=== PATIENT | male | born 1965 | race Caucasian/White ===

== ENCOUNTER → 2017-11-18 | Outpatient (CLI) | payer OTHER ==
--- NOTE | 2017-11-18 18:03 | Diagnostic Imaging Report ---
PROCEDURE:TESTICULAR ULTRASOUND COMPARISON:06/28/2016 INDICATIONS:SPERMATOCELE OF EPIDIDYMIS FINDINGS: Multiple sagittal and axial images were obtained of the scrotum. Doppler examination was performed bilaterally. The right testicle measures 3.0 x 2.4 x 3.0 cm. It is of normal echogenicity without focal masses. The vascular supply is within normal limits, without evidence of testicular torsion. The right epididymis measures approximately 1.0 x 0.8 x 0.8 cm. There is a 0.5 x 0.4 x 0.6 cm right epididymal head cyst or spermatocele. No hydrocele or varicocele is identified. The left testicle measures 3.5 x 2.2 x 3.3 cm. It is within normal echogenicity without focal masses. The vascular supply is within normal limits, without evidence for torsion. The left epididymis measures approximately 1.8 x 1.8 x 1.9 cm. There is a 2.0 x 1.4 x 2.0 cm left epididymal cyst or spermatocele. No hydrocele. A small left varicocele appears grossly unchanged. There is no sonographic evidence for right or left inguinal hernia. Overlying scrotal tissue is within normal limits. CONCLUSION: 1. No evidence of testicular torsion, mass, or inflammatory disease. 2. Left-sided varicocele, unchanged. 3. Bilateral epididymal head spermatoceles or cysts, measuring up to 2.0 cm on the left, unchanged Dictated by: Brian Robles M.D. on 11/18/2017 at 18:04 Electronically approved by: Brian Robles M.D. on 11/18/2017 at 18:04
--- NOTE | 2017-11-18 18:04 | Diagnostic Imaging Report ---
PROCEDURE:TESTICULAR DOPPLER ULTRASOUND Please refer to separate dictation for testicular ultrasound (accession #[id number]) for full results Dictated by: Brian Robles M.D. on 11/18/2017 at 18:05 Electronically approved by: Brian Robles M.D. on 11/18/2017 at 18:05
== END | disposition home or self-care (01) ==
LOC: US 16:43
PROVIDERS: ATTEND Urology
DX: N43.40 Spermatocele of epididymis, unspecified (principal); I86.1 Scrotal varices; N50.3 Cyst of epididymis
CPT/HCPCS: 76870; 93976